=== PATIENT | male | born 1935 | race Caucasian/White ===

== ENCOUNTER → 2017-08-26 | Outpatient (CLI) | payer OTHER, MEDICARE | LOC: BHFA 13:15 | PROVIDERS: ATTEND Internal Medicine Cardiovascular Disease | DX: I50.9 Heart failure, unspecified (principal) ==

== ENCOUNTER → 2018-03-09 | Outpatient (CLI) | payer OTHER, MEDICARE | LOC: BHFA 13:15 | PROVIDERS: ATTEND Internal Medicine Cardiovascular Disease | DX: I48.91 Unspecified atrial fibrillation (principal) ==

== ENCOUNTER 2018-03-19 10:35 | Inpatient (IN) | payer OTHER, MEDICARE ==
--- NOTE | 2018-03-19 10:50 | CPEKG ---
Heart Rate: 75 RR Interval: 800 P-R Interval: 132 QRSD Interval: 188 QT Interval: 504 QTC Interval: 563 QRS Means: 18 T Wave Means: 186 EKG Severity - ABNORMAL ECG - EKG Impression: ATRIAL-VENTRICULAR DUAL-PACED COMPLEXES EKG Impression: IVCD, CONSIDER ATYPICAL LBBB Electronically Signed By: Eddie Hughes 19-Mar-2018 11:18:15
--- NOTE | 2018-03-19 10:54 | EDPHY ---
H & P Time Seen by Provider: 03/19/18 10:43 HPI/ROS: CHIEF COMPLAINT: Defibrillator went off twice HISTORY OF PRESENT ILLNESS: Patient has AICD from [facility]. Went off about a month ago from AFib. It went off yesterday once and then today twice at 10: 00 a.m.. He feels like he got punched in the chest. Currently has a little bit fatigued but has no other symptoms. He did not have syncope. REVIEW OF SYSTEMS: Eye: no change in vision ENT: no sore throat Cardiac: no chest pain or syncope Pulmonary: no cough or SOB Abdomen: no vomiting, diarrhea, abdominal pain Musculoskeletal: no back pain Skin: no rash Neuro: no headache Constitutional: Mild fatigue, no fever or chills. : no urinary symptoms A comprehensive 10 point review of systems is otherwise negative aside from elements mentioned in the history of present illness. PAST MEDICAL HISTORY: Includes AICD, atrial fibrillation on Eliquis, skin cancer surgery in his right upper lip. Prostate surgery, cholecystectomy, lumbar spine surgery, CHF Social history: Here with his General Appearance: Alert and conversant, cooperative. Eyes: No scleral icterus. ENT, Mouth: Normal mucous membranes. Respiratory: Normal respiratory effort, breath sounds equal, lungs are clear to auscultation. Cardiovascular: Regular rate and rhythm. Gastrointestinal: Abdomen is soft and non tender. Neurological: Alert, face symmetric, normal motor and sensory in extremities. Skin: Band-Aid over his upper lip where he had recent skin cancer surgery. Musculoskeletal: No peripheral edema. Psychiatric: Not agitated. Emergency Department course/MDM: [facility] is called to come evaluate the patient and interrogate his device. Pacer interrogation shows he has been given 28 rounds of ATP and 3 shocks in the last 24 hr for rapid atrial fibrillation. 1249: Discussed with Preston at this time; recommends admission for amiodarone. Discussed with the patient at this time he wants to discuss with cardiology/Dr. Johnsotn before starting this medication. Plan for observation admission with monitoring, cardiology consultation. Smoking Status: Never smoked Constitutional: Initial Vital Signs Temperature (C) 36.7 C 03/19/18 10:40 Heart Rate 76 03/19/18 10:40 Respiratory Rate 16 03/19/18 10:40 Blood Pressure 106/79 03/19/18 10:40 O2 Sat (%) 98 03/19/18 10:40 O2 Delivery Mode Room Air Allergies/Adverse Reactions: No Known Allergies Allergy (Verified 02/06/16 09:27) Home Medications: Medication Instructions Recorded Coreg 03/19/18 Eliquis 03/19/18 Gabapentin 03/19/18 Lasix 03/19/18 Levothyroxine 03/19/18 Pulmicort 03/19/18 Medical Decision Making - Diagnostics EKG Interpretation: 12-lead EKG interpreted by me; official reading is in trace master. My interpretation is av dual paced at rate of 75. Differential Diagnosis: Differential for pacemaker shock considered including but not limited to device malfunction, atrial fibrillation, ventricular tachycardia, ventricular fibrillation. Consult/Admit Bed Type: [facility] - Data Points Laboratory Results: Laboratory Results 03/19/18 10:55 03/19/18 10:55 03/19/18 03/19/18 03/19/18 11:03 10:55 10:55 WBC 4.69 10^3/uL 10^3/uL (3.80-9.50) RBC 4.06 10^6/uL L 10^6/uL (4.40-6.38) Hgb 13.6 g/dL L g/dL (13.7-17.5) Hct 40.2 % % (40.0-51.0) MCV 99.0 fL fL (81.5-99.8) MCH 33.5 pg pg (27.9-34.1) MCHC 33.8 g/dL g/dL (32.4-36.7) RDW 14.0 % % (11.5-15.2) Plt Count 141 10^3/uL L 10^3/uL (150-400) MPV 10.6 fL fL (8.7-11.7) Neut % (Auto) 52.3 % % (39.3-74.2) Lymph % (Auto) 32.2 % % (15.0-45.0) Mineral % (Auto) 13.6 % H % (4.5-13.0) Eos % (Auto) 0.9 % % (0.6-7.6) Baso % (Auto) 0.6 % % (0.3-1.7) Nucleat RBC Rel Count 0.0 % % (0.0-0.2) Absolute Neuts (auto) 2.45 10^3/uL 10^3/uL (1.70-6.50) Absolute Lymphs (auto) 1.51 10^3/uL 10^3/uL (1.00-3.00) Absolute Monos (auto) 0.64 10^3/uL 10^3/uL (0.30-0.80) Absolute Eos (auto) 0.04 10^3/uL 10^3/uL (0.03-0.40) Absolute Basos (auto) 0.03 10^3/uL 10^3/uL (0.02-0.10) Absolute Nucleated RBC 0.00 10^3/uL 10^3/uL (0-0.01) Immature Gran % 0.4 % % (0.0-1.1) Immature Gran # 0.02 10^3/uL 10^3/uL (0.00-0.10) Sodium 139 mEq/L mEq/L (135-145) Potassium 4.0 mEq/L mEq/L (3.3-5.0) Chloride 104 mEq/L mEq/L (97-110) Carbon Dioxide 24 mEq/l mEq/l (22-31) Anion Gap 11 mEq/L mEq/L (8-16) BUN 19 mg/dL mg/dL (7-23) Creatinine 1.2 mg/dL mg/dL (0.7-1.3) Estimated GFR 58 Glucose 98 mg/dL mg/dL (70-100) Calcium 9.6 mg/dL mg/dL (8.5-10.4) POC Troponin I 0.04 ng/mL ng/mL (0.00-0.08) Point of Care Test Results: Chemistry 03/19/18 11:03 POC Troponin I 0.04 ng/mL ng/mL (0.00-0.08) Departure - Departure Disposition: [facility] Inpatient Acute Clinical Impression: Defibrillator discharge Atrial fibrillation Qualifiers: Atrial fibrillation type: paroxysmal Qualified Code(s): I48.0 - Paroxysmal atrial fibrillation Condition: Good
[2018-03-19] MEDS ORDERED: AMIODARONE HCL 200 ML IV ONE ×2 (12:57→15:12)
[2018-03-19] MEDS ORDERED: AMIODARONE HCL 100 ML IV ONE ×2 (12:57→15:12)
[2018-03-19 13:10] LABS: PLATELET COUNT 141 10^3/uL (150-400)
[2018-03-19] MEDS ORDERED: ACETAMINOPHEN 325 MG TAB PO PRN (13:23)
[2018-03-19] MEDS ORDERED: ONDANSETRON 4 MG/2 ML VIAL IVP PRN (13:23)
--- NOTE | 2018-03-19 16:59 | GCON ---
[f rep st] CONSULTATION CARDIOLOGY CONSULT. DATE OF CONSULTATION: 03/19/2018 REFERRING PHYSICIAN: MD Brennan PRIMARY CARDIOLOGISTS: Dr. Elías Manning and Dr. Uriel Shelton. CHIEF COMPLAINT: Defibrillator shock. HISTORY OF PRESENT ILLNESS: We were asked by Dr. Amin to visit with the patient. The patient is a very pleasant 82-year-old male, followed by my partners, Dr. Manning and Dr. Shelton. He has a history of paroxysmal atrial fibrillation and ventricular tachycardia. He has a nonischemic cardiomyopathy and has a [employer] biventricular dual-chamber ICD. Other history includes hypertension, [id number] evere mitral regurgitation, and chronic renal insufficiency. The patient was in his usual state of health yesterday. He received a single shock that felt like be ing kicked in the chest. Today, this happened twice more. He denies any warning such as lightheaded ness or palpitations. He did not lose consciousness or fall with the shocks. He presented to the ER. His device was interrogated and showed that he was inappropriately shocked f or atrial fibrillation 3 times and had 28 episodes of ATP as well. Currently, the patient feels back to normal. I have reviewed his clinic notes. He did have discrimination changes to his ICD back in January when he had also presented with inappropriate shocks for atrial fibrillation. He most recently see saw Dr. Shelton on March 09. There was a discussion about whether amiodarone should be initiated or whether the patient would move forward with either atrial fibrillation or VT ablation . It was decided to continue current management at that time. REVIEW OF SYSTEMS: The patient had Mohs surgery 2 days ago. He has had a chronic cough for several months and sees Dr. Sanchez. Otherwise, a full 10-point review of systems performed is negative except that which is outlined above. ALLERGIES: No known drug allergies. PAST MEDICAL HISTORY: 1. Nonischemic cardiomyopathy with an ejection fraction most recently 22%. 2. Paroxysmal atrial fibrillation. 3. Ventricular tachycardia with BiV ICD. This is a [employer] device. 4. Chronic renal insufficiency. 5. Hypertension. 6. Depression. 7. Mkxtfqeq-de-gfmbqz mitral regurgitation. 8. Peripheral neuropathy. 9. Hypothyroidism. OUTPATIENT MEDICATIONS: Neurontin, which is new; Coreg 3.125 mg twice daily; Eliquis 5 mg b.i.d.; La six 40 mg once daily; Synthroid; Ativan p.r.n.; potassium chloride 20 mEq b.i.d.; Protonix 20 mg; Pul micort inhaler; Spiriva; vitamin D3. SOCIAL HISTORY: The patient is . His is at the bedside. He does not smoke cigarettes. FAMILY HISTORY: Not applicable to the current case. PHYSICAL EXAM: VITAL SIGNS: Blood pressure 108/78, heart rate 81, oxygen saturation 90% on room air . He is afebrile. GENERAL: Well-appearing older male in no acute distress. HEENT: He does have a recent Mohs surgery over his right upper lip. He also has a rash on the right side of his face. No rmocephalic, atraumatic. CARDIOVASCULAR: JVP is less than 10. Regular rate and rhythm without murm ur, rub, or gallop. LUNGS: Clear to auscultation bilaterally without wheezes, rhonchi, or rales. A BDOMEN: Soft, nontender, nondistended, without bruits, masses, or hepatosplenomegaly. EXTREMITIES: Warm, well perfused without cyanosis, clubbing, or edema. NEURO: Alert and oriented x3 without yr ss focal neurologic deficits. Appropriate mood and affect. LABORATORY DATA: CBC is essentially normal except for platelets of 141; hemoglobin 13.6, which is luciano rderline low; minimally elevated monocytes. Basic metabolic panel shows creatinine of 1.2, normal po tassium, normal troponin. EKG reviewed by me shows AV sequential pacing. ASSESSMENT AND PLAN: An 82-year-old male presents with inappropriate shocks for atrial fibrillation. I had a long discussion with the patient and his about initiating amiodarone at this point, luciano th for his history of ventricular tachycardia, for which he has previously been shocked most recently as a month ago, as well as for his atrial fibrillation. He is in agreement to at least short-term a miodarone. No evidence of ischemia as a trigger for his arrhythmia. 1. Atrial fibrillation and ventricular tachycardia: We will start intravenous amiodarone protocol w ith plans to transition to oral amiodarone tomorrow. Check magnesium. Continue Coreg. I do not thi nk he would tolerate a higher dose of Coreg given his relatively low blood pressure and ongoing fatig ue. 2. Implantable cardioverter defibrillator shocks: As per #1. We will review strips. We will discu ss with Dr. Shelton. He may require further changes to device or possibly ablation. 3. Cardiomyopathy: Ejection fraction 22%. Currently appears euvolemic. Continue his outpatient ca rdiomyopathy medications. In review, he is not on an MARCELO inhibitor or angiotensin receptor leeann. This may be due to previous hypotension. He does follow up with Dr. Manning. 4. Chronic renal insufficiency: Creatinine is 1.2, which is his baseline. GFR is appropriate for 5 mg dose Eliquis. 5. Valvular heart disease: He does have at least moderate mitral regurgitation. Appears euvolemic today. Thank you for allowing us to participate in Percy's care. We will follow with you. /[id number]/MODL
[2018-03-19] MEDS: CARVEDILOL 3.125 MG TAB PO SCH (17:38)
[2018-03-19] MEDS: POTASSIUM CL 10 MEQ TAB PO SCH (17:38)
[2018-03-19] MEDS: OMEGA-3 FATTY ACIDS 1,000 MG CAP PO SCH (21:04)
[2018-03-19] MEDS: GABAPENTIN 300 MG CAP PO SCH (21:04)
[2018-03-19] MEDS: APIXABAN 5 MG TAB PO SCH (21:04)
[2018-03-19] MEDS ORDERED: AMIODARONE HCL 540 MG in D5W 300 ML IV ONE (22:00)
[2018-03-19] MEDS: ZOLPIDEM TARTRATE 5 MG TAB PO PRN (22:08)
[2018-03-20] MEDS: LEVOTHYROXINE 75 MCG TAB PO SCH (06:25)
[2018-03-20] MEDS: APIXABAN 5 MG TAB PO SCH ×2 (08:47→20:07)
[2018-03-20] MEDS: FUROSEMIDE 40 MG TAB PO SCH (08:47)
[2018-03-20] MEDS: OMEGA-3 FATTY ACIDS 1,000 MG CAP PO SCH ×2 (08:47→20:07)
[2018-03-20] MEDS: CARVEDILOL 3.125 MG TAB PO SCH ×2 (08:47→18:11)
[2018-03-20] MEDS: CHOLECALCIFEROL VIT D3 2,000 UNITS TAB/CAP PO SCH (08:47)
--- NOTE | 2018-03-20 09:52 | PDCARPN ---
Cardiology Progress Note Assessment/Plan: Assessment/plan: 82-year-old male with nonischemic cardiomyopathy, paroxysmal atrial fibrillation, history of VT with biventricular ICD. This is a [employer] device. He also has moderate to severe mitral regurgitation. He was admitted with 3 ICD shocks. Interrogation of his device revealed multiple episodes of ATP and 3 shocks, all for atrial fibrillation with rapid ventricular response. No evidence of coronary ischemia. 1. Arrhythmia: Inappropriate shocks for rapid atrial fibrillation. IV amiodarone was initiated yesterday and will finish 24 hr drip this afternoon. Transition to oral amiodarone today. The patient does not wish to continue long -term amiodarone if possible. Will discuss options with his primary dairy worker Dr. Shelton. Would keep at least 1 more night to make sure arrhythmias have stabilized. Continue Eliquis for his atrial fibrillation. 2. Cardiomyopathy: He appears euvolemic. Continue his outpatient Coreg. I do not think we can up titrate this due to relatively low blood pressure. Continue outpatient diuretics. He does see Dr. Manning for heart failure management. 3. Mitral regurgitation: Moderate to severe. Continue outpatient medical therapy. 03/20/18 09:48 03/20/18 09:52 Subjective: He reports feeling a little bit dyspneic when trying to sleep last night. No angina. He does not note palpitations. Reviewed/Discussed With: family Objective: Vital Signs (8 Hrs) Temp Pulse Resp BP Pulse Ox 03/20/18 08:47 92 03/20/18 08:00 36.6 C 76 15 94/58 L 97 03/20/18 04:00 36.4 C 77 16 95/70 L 96 Intake/Output (24 Hrs) 03/19/18 03/20/18 03/21/18 05:59 05:59 05:59 Intake Total 1190.3 Output Total 0 Balance 1190.3 Intake: Oral (ml) 940 IV Infused (ml) 250.3 Amiodarone HCl 100 ml @ 100 600 mls/hr IV ONCE ONE Rx #:[id number] Amiodarone HCl 540 mg In 150.3 D5w 300 ml @ 16.667 mls/ hr IV ONCE ONE Rx#: [id number] Output: Urine (ml) 0 Chest Tube Output (ml) 0 Estimated Blood Loss (ml) 0 Emesis (ml) 0 Gastrointestinal Tube 0 Output (ml) Wound Drainage (ml) 0 Other: Weight 74.344 kg Number of Voids 0 Number of Bowel Movements 0 Number of Emesis 0 Occurrences No acute distress JVP 12 cm of water. Regular rate and rhythm without murmur rub gallop Lungs clear without wheeze rhonchi or rales No lower extremity edema Result Diagrams: 03/19/18 10:55 03/20/18 03:10 Telemetry: Mostly AFib with ventricular rates in the 120s. Some AV sequential pacing. ICD10 Worksheet Patient Problems: Problems Problem Status Onset URI (upper respiratory infection) Acute Non-ischemic cardiomyopathy Acute CHF (congestive heart failure) Acute Chronic Disease Mgmt/Transitional Care Acute Atrial fibrillation Acute Defibrillator discharge Acute
[2018-03-20] MEDS: BUDESONIDE IH SCH ×3 (10:02→21:55)
[2018-03-20] MEDS: [UNRECOGNIZED DRUG - OTHER] IH SCH ×3 (10:02→21:55)
--- NOTE | 2018-03-20 11:08 | HOSPPROG ---
Hospitalist Progress Note Assessment/Plan: DIAGNOSES: * atrial fibrillation rapid ventricular response with history of same * multiple unsuccessful shocks from his AICD which was trying to treat his AFib * known severe systolic heart disease most recent ejection fraction July 2017 22% * PLANS: * Continue amiodarone at this time, will switch to p.o. Later today * Continue cardiac monitoring * Continue anticoagulation * I will order an echocardiogram to reassess his left ventricular function * Further decision making based on his progress, Dr. Johnston intends to review with Dr. Shelton who knows him well SUBJECTIVE: Patient feels well at this time. No further shocks from his AICD His been up walking very well in the hallway, no dyspnea no chest pain no palpitations OBJECTIVE Vitals reviewed: All stable without fever Corporate Risk Analyst, my review: Mostly paced but does have intermittent episodes of AFib in the 90s to 105,110 range particularly with activity Exam: alert oriented skin warm dry color ok resps not labored No jugular venous distension lungs clear BSs heart regular abd soft nondistended nontender, bowel sounds present limbs warm, no edema iv site ok Laboratory data: Basic metabolic panel stable today Objective: Vital Signs Temp Pulse Resp BP Pulse Ox 36.6 C 92 15 94/58 L 97 03/20/18 08:00 03/20/18 08:47 03/20/18 08:00 03/20/18 08:00 03/20/18 08:00 Laboratory Results 03/20/18 03:10 03/19/18 03/20/18 03/21/18 06:59 06:59 06:59 Intake Total 1190.3 Output Total 0 Balance 1190.3 ICD10 Worksheet Patient Problems: Problems Problem Status Onset Atrial fibrillation Acute Defibrillator discharge Acute CHF (congestive heart failure) Acute Chronic Disease Mgmt/Transitional Care Acute Non-ischemic cardiomyopathy Acute URI (upper respiratory infection) Acute
[2018-03-20] MEDS: POTASSIUM CL 10 MEQ TAB PO SCH ×2 (12:59→18:11)
[2018-03-20] MEDS: MULTIVITAMINS 1 EACH TAB PO SCH (12:59)
--- NOTE | 2018-03-20 13:28 | PDGENHP ---
History and Physical History and Physical: CC: Multiple shocks from his AICD HISTORY: This patient with long history of severe left ventricular heart disease and known atrial fibrillation and AICD placement comes in after 3 shocks from his AICD to on this admission data and 1 the day before. He has not had palpitations, chest pain, shortness of breath, leg swelling, worsening orthopnea or other acute cardiac symptoms besides the AICD shocks. His pacemaker was interrogated and he had 3 unsuccessful cardioversions attempted by the pacemaker for rapid atrial fibrillation. The pacer also tried some unsuccessful pacing attempts. The patient is now admitted to the rerecording mixer unit for further assessment and care. He has been otherwise feeling well. On review of his records the patient has had known heart disease for many years. He has nonischemic left ventricular heart disease. In late 2015 he was here with worsening heart failure and had ejection fraction measured by echo at 8%. At that time he had been referred to the [facility] for possible implantable assist device but it was felt that he was not a good candidate and that procedure was not offered. More recently the patient had an echocardiogram done in the Cardiology Clinic here July 2017 with any EF 22% . Has a long history of not being able to tolerate cardiac medicines due to severe symptomatic hypotension. Therefore despite his severe left ventricular disease he is taking only a small dose of Coreg with no ARB or MARCELO-inhibitor and has been similarly unable to tolerate hydralazine. He also has not been able to the tolerate more aggressive rate control medications. His echoes have also shown moderate to severe mitral regurgitation with some pulmonary hypertension and he has notable market biatrial enlargement. He has noncritical coronary disease seen on previous angiograms Notably despite all these cardiac abnormalities, at this time the patient is very asymptomatic at home prior to getting the recent shocks from his AICD. He is up and ambulating, walks greater than a mile a day which he does without stopping at a fairly rapid pace. He has no real symptoms of dyspnea, no edema, no lightheadedness, no palpitations, minimal occasional orthopnea. Their nose recent symptoms of angina. ROS: A comprehensive 10 system review revealed no other significant findings PAST MEDICAL HISTORY: Severe left ventricular systolic heart failure Moderate to severe mitral regurgitation Pacemaker for sick sinus syndrome with AICD due to his ventricular disease Severe biatrial enlargement Pulmonary hypertension Noncritical coronary artery disease with no history of interventions Hypertension Hyperlipidemia Prostate cancer Peripheral neuropathy Cholecystectomy Shoulder surgeries Back surgery and ankle surgery FAMILY MEDICAL HISTORY: Coronary heart disease and heart failure SOCIAL HISTORY: lives at home with his No tobacco no significant alcohol Retired MEDICATIONS: The patients list has been reconciled by our clinical pharmacist in the EMR. I have reviewed the list and ordered appropriate medicines. PHYSICAL EXAMINATION: Container Maker: Paced rhythm with intermittent atrial fibrillation Vital Signs: Currently stable vital signs with paced rhythm Good blood pressure respirations no fever Examination: General: alert, oriented, good mentation, relaxed Skin: warm, dry, good color, no rash HEENT: normal Neck: no mass or jvd Resps: relaxed Lungs: clear breath sounds Heart: regular, no murmur Abdomen: soft, nondistended, nontender, +BS, no mass Upper Extremities: normal Lower Extremities: no edema, warm No Bleeding or bruising Neurologic: normal speech/language, normal manager activities, no focal weakness IV site: looks normal LABORATORY DATA: BNP 4600, unremarkable troponin and metabolic panel Unremarkable CBC with mild chronic anemia RADIOLOGY STUDIES: None so far 12 LEAD EKG: My reading of the ER tracing shows 2 lead pacing with good function of the pacemaker typical conduction pattern for pacer ASSESSMENT: * acute increase in AFib burden in a patient with a history of paroxysmal AFib * 3 unsuccessful attempts by his AICD at cardioversion of his AFib * absence of any congestive heart failure decompensation at this time * absence of symptoms signs or test results indicating any ischemia * known severe left ventricular heart disease, lowest recorded ejection fraction at 5-10% by echo but most recently at 22% this past July * moderate to severe mitral regurgitation, biatrial enlargement, and pulmonary hypertension all stable * other acute medical illnesses as listed above in the past medical history are stable at this time Notably this patient is doing quite remarkably well for all of his chronic heart issues. He really is only symptomatic in that he has been receiving shocks from his AICD. It would be great trying keep him out of atrial fibrillation so this does not happen however given his multiple cardiac abnormalities this is not likely a obtainable without ongoing antiarrhythmic medication. The patient himself states he prefers to avoid terminal make up operator anti arrhythmic medicines. I do not know if we could reprogrammed his pacer to avoid trying to shock is rapid AFib, however this would leave him with unprotected rapid AFib which appears to be a increased burden for him just recently based on the behavior of his pacemaker. I wonder if he might possibly be a candidate for a an AV node ablation. Given the history of his poor LV function and his last echocardiogram more than half year ago it may be useful to get an echocardiogram to see if there is any change there. At the moment does not appear that there is much evidence for new ischemic disease though that could always occur. PLANS: * Admit to hospital in patient with cardiac monitoring * Cardiology consult Dr. Nasima Johnston will review with her after she sees the patient * Amiodarone has been started and will continue on IV load with that change to oral * Continue anticoagulation for now with Eliquis * Consider further treatment options based on cardiology recommendations and the patient's response to amiodarone I have reviewed the patient's case in detail with Dr. Eddie Hughes I have reviewed the patient's past medical records as part of this assessment, including multiple hospital admission records including physician notes laboratory data echocardiograms and EKGs
[2018-03-20] MEDS: AMIODARONE HCL 200 MG TAB PO SCH ×2 (13:53→20:07)
--- NOTE | 2018-03-20 14:15 | ASMTCMCOM ---
CM Note CM Note Notes: 03/20/2018 Case Management Note Met w/pt to discuss d/c needs. Pt admitted for treatment of afib. 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 Pt lives in his own home with his independently. He maintains his house without any help. He is able to drive and reports no difficulties with obtaining groceries. He has family nearby in [place] if assistance is needed. His Precious can be reached at [phone]. There are no PT or OT evals ordered at this time. There are no identified case management needs. Case Management d/c poc: independent with follow up as directed. Case Management available if needs change. Date Signed: 03/20/2018 02:14 PM Electronically Signed By:Sophia Wilson RN
--- NOTE | 2018-03-20 18:11 | PDMN ---
Medical Necessity Medical necessity: Pt meets INPT criteria per MD as of 03/19/18 and [facility] M-505 Atrial Fibrillation (est. LOS >2 MN for eval/mgmt of acute increase in Afib burden, 3 unsuccessful attempts by his AICD at cardioversion, known serven L ventricular heart disease, MR, pulmonary htn).
[2018-03-20] MEDS: GABAPENTIN 300 MG CAP PO SCH (20:07)
[2018-03-20] MEDS: ZOLPIDEM TARTRATE 5 MG TAB PO PRN (22:13)
[2018-03-21] MEDS: LEVOTHYROXINE 75 MCG TAB PO SCH (05:51)
[2018-03-21] MEDS: AMIODARONE HCL 200 MG TAB PO SCH ×2 (08:47→20:26)
[2018-03-21] MEDS: CARVEDILOL 3.125 MG TAB PO SCH ×2 (08:47→17:47)
[2018-03-21] MEDS: FUROSEMIDE 40 MG TAB PO SCH (08:47)
[2018-03-21] MEDS: OMEGA-3 FATTY ACIDS 1,000 MG CAP PO SCH ×2 (08:48→20:25)
[2018-03-21] MEDS: APIXABAN 5 MG TAB PO SCH ×2 (08:48→20:26)
--- NOTE | 2018-03-21 09:14 | ECHO ---
[email or web address] [address] [address] Main: [phone] Fax: Transthoracic Echocardiogram Name: LINDA BOWERS MR#: [id number] Study Date: 03/20/2018 Study Time: 03:00 PM Date of : 1935 Age: 82 year(s) Height: 177.8 cm (70 in.) Weight: 73.94 kg (163 lb.) BSA: 1.91 m2 Gender: Male Examination: Echo Indication: uncontrolled a fib, known severe systolic heart disease Image Quality: Adequate Contrast: Requested by: Ruben Amin BP: 92 mmHg/71 mmHg Heart Rate: Rhythm: Indication: uncontrolled a fib, known severe systolic heart disease Procedure Staff Roller Checker: Amisha Briscoe [facility] Reading Physician: Farhat Ceja MD Requesting Provider: Conclusions: Normal size left ventricle. No LV hypertrophy. Severely reduced systolic LV function. The ejection fraction is estimated to be 10-15 %. Global severe hypokinesis. There is a pacemaker lead noted in the right ventricle. The left atrium is severely dilated. The right atrium is normal in size. The mitral valve is normal in appearance and function. Severe mitral valve regurgitation is present. No mitral stenosis is present. Moderate aortic valve regurgitation is present. No aortic valve stenosis is present. The tricuspid valve is normal in appearance and function. Mild to moderate tricuspid valve regurgitation. The pulmonary artery pressure is mild to moderately increased. Right ventricular systolic pressure measures 48mmHg. No significant change Measurements: Chambers Valvular Assessment AV/MV Valvular Assessment TV/PV Normal Normal Normal Name Value Range Name Value Range Name Value Range Ao Alena (2D): 3.4 cm (1.4 cm-2.6 AV Vmax: 1.20 m/s (1 m/s-1.7 TR Vmax: 3.26 mm/s ( - ) cm) m/s) TR PGmax: 43 mmHg ( - ) IVSd (2D): 0.9 cm (0.6 cm-1.1 AV maxP mmHg ( - ) syst. PAP: 48 mmHg ( - ) cm) AV meanP mmHg ( - ) PV Vmax: 0.58 m/s (0.6 m/s-0.9 LVDd (2D): 7.5 cm (4.2 cm-5.9 JERICHO (VTI): 1.6 cm ( - ) m/s) cm) AR (PHT): 577 ms ( - ) PV PGmax: 1 mmHg ( - ) Patient: LINDA BOWERS Study Date: 03/20/2018 Page 1 of 3 03:00 PM LVDs (2D): 6.9 cm (2.1 cm-4 MV E Vmax: 0.73 m/s ( - ) cm) MV meanP mmHg ( - ) LVPWd (2D): 0.8 cm (0.6 cm-1 MV PHT: 0.059 s ( - ) cm) MVA (Vmax): 1.6 m/s ( - ) LVOTd 2.2 cm 2.2 cm mm MVA (PHT): 3.7 s ( - ) LVEF (BP): 12 % (>=55 %) EF Range: 10-15 % RVDd(2D): 3.8 cm (1.9 cm-3.8 cmmm) Continued Measurements: Chambers Valvular Assessment AV/MV Valvular Assessment TV/PV Name Value Name Value Name Value LADs: 4.8 cm MV DecTime: 158 m/s CVP (est.): 5 mmHg LADs Lon.8 cm MV E/E' Lateral: 11.50 LA Area: 25.9 cm2 MV VTI: 21.80 cm LA Volume: 117 ml MR ERO: 0.940 cm2 LA Volume Index: 61.3 ml/m2 MR PISA radius: 12 mm RA Area: 28.3 cm2 MR Reg. Volume: 100 ml AR Vmax: 3.69 cm/s Additional Vessels Name Value Ao Ascendin.1 cm Inferior Vena Cava: 1.6 cm Findings: Left Ventricle: Normal size left ventricle. No LV hypertrophy. Severely reduced systolic LV function. The ejection fraction is estimated to be 10-15 %. Unable to assess diastolic dysfunction. Global severe hypokinesis. Right Ventricle: Normal size right ventricle. Normal RV function. There is a pacemaker lead noted in the right ventricle. Left Atrium: The left atrium is severely dilated. Right Atrium: The right atrium is normal in size. Mitral Valve: The mitral valve is normal in appearance and function. Severe mitral valve regurgitation is present. No mitral stenosis is present. Aortic Valve: The aortic valve is tri-leaflet. Aortic sclerosis is present. Moderate aortic valve regurgitation is present. No aortic valve stenosis is present. Tricuspid Valve: The tricuspid valve is normal in appearance and function. Mild to moderate tricuspid valve regurgitation. The pulmonary artery pressure is mild to moderately increased. Right ventricular systolic pressure measures 48mmHg. Pulmonic Valve: The pulmonic valve is normal in appearance and function. There is no pulmonic regurgitation seen. Aorta: The aorta is normal. Normal size aortic root measuring 3.4 cm. Normal size ascending aorta measuring 3.1 cm. IVC: The IVC is normal sized. Pericardium: No pericardial effusion. No pleural effusion. Patient: LINDA BOWERS Study Date: 03/20/2018 Page 2 of 3 03:00 PM (No Signature Object) Patient: LINDA BOWERS Study Date: 03/20/2018 Page 3 of 3 03:00 PM [id number]
[2018-03-21] MEDS: BUDESONIDE IH SCH ×2 (09:53→20:59)
[2018-03-21] MEDS: [UNRECOGNIZED DRUG - OTHER] IH SCH ×2 (09:53→20:59)
--- NOTE | 2018-03-21 10:41 | PDCARPN ---
Cardiology Progress Note Chief Complaint: AF RVR/inappropriate ICD shocks Assessment/Plan: Assessment: Plan: Subjective: 82-year-old male with nonischemic cardiomyopathy, paroxysmal atrial fibrillation , history of VT with biventricular ICD. This is a [employer] device. He also has moderate to severe mitral regurgitation. He was admitted 03/19 with 3 ICD shocks. Interrogation of his device revealed multiple episodes of ATP and 3 shocks, all for atrial fibrillation with rapid ventricular response. No evidence of coronary ischemia. # Arrhythmia: Inappropriate shocks for rapid atrial fibrillation. - Has completed IV amiodarone . - Transitioned to oral amiodarone yesterday. - The patient does not wish to continue long-term amiodarone if possible. - Have reviewed with Dr. Shelton who recommends AVN ablation. - R/B/A reviewed and patient agreeable. - Continue Eliquis for his atrial fibrillation. #. VT: seen on previous outpatient checks - none seen on Telemetry overnight. - Continue Warfarin for now. #. Cardiomyopathy: He appears euvolemic. - Continue his outpatient Coreg. #. Mitral regurgitation: Moderate to severe. - Echo from yesterday shows severe MR which may be a function of lower EF. - Continue outpatient medical therapy. - Has previously declined surgical evaluation. Reviewed/Discussed With: family (), hospitalist (Dr. Iverson), other (Dr. Shelton) Time Spent with Patient: greater than 35 minutes Time Spent with Patient: Greater than 35 minutes spent on this patients care, greater than 50% of time spent counseling, educating, and coordinating care regarding the above mentioned plan. Objective: Vital Signs (8 Hrs) Temp Pulse Resp BP Pulse Ox 03/21/18 07:26 98.3 F 88 12 99/74 L 95 03/21/18 06:09 98.1 F 85 16 95/68 L 91 L Intake/Output (24 Hrs) 03/20/18 03/21/18 03/22/18 05:59 05:59 05:59 Intake Total 1190.3 425 150 Output Total 0 Balance 1190.3 425 150 Intake: Oral (ml) 940 425 150 IV Infused (ml) 250.3 0 Amiodarone HCl 100 ml @ 100 600 mls/hr IV ONCE ONE Rx #:[id number] Amiodarone HCl 540 mg In 150.3 0 D5w 300 ml @ 16.667 mls/ hr IV ONCE ONE Rx#: [id number] Output: Urine (ml) 0 Chest Tube Output (ml) 0 Estimated Blood Loss (ml) 0 Emesis (ml) 0 Gastrointestinal Tube 0 Output (ml) Wound Drainage (ml) 0 Other: Weight 74.344 kg 74.6 kg Intake Quantity Yes Sufficient Number of Voids 0 Number of Bowel Movements 0 Number of Emesis 0 Occurrences Result Diagrams: 03/19/18 10:55 03/20/18 03:10 Telemetry: AF and Paced rhythms Echocardiogram: 03/20: EF 10-15, global severe HK, severe MR, mod AR, RVSP 48 - Physical Exam Constitutional: no apparent distress Eyes: anicteric sclera Ears, Nose, Mouth, Throat: moist mucous membranes Neurologic: AAOx3 Psychiatric: cooperative, interactive ICD10 Worksheet Patient Problems: Problems Problem Status Onset Atrial fibrillation Acute Defibrillator discharge Acute CHF (congestive heart failure) Acute Chronic Disease Mgmt/Transitional Care Acute Non-ischemic cardiomyopathy Acute URI (upper respiratory infection) Acute
--- NOTE | 2018-03-21 11:01 | HOSPPROG ---
Hospitalist Progress Note Assessment/Plan: 82M with paroxysmal atrial fib and severe cardiomyopathy presents after three AICD shocks for a-fib # atrial fib, paroxysmal s/p inappropriate AICD shocks - s/p amiodarone load - plan for AV node ablation tomorrow - cont clara horowitz # NICM, EF 10-15% - euvolemic - cont coreg - not tolerant of MARCELO-i gven low BPs - cont lasix - bi-V AICD # severe MR # VT - per cards, seen on outpatient checks Subjective: feels ok today; wants to shower Objective: Vital Signs Temp Pulse Resp BP Pulse Ox 36.8 C 88 12 99/74 L 95 03/21/18 07:26 03/21/18 07:26 03/21/18 07:26 03/21/18 07:26 03/21/18 07:26 Laboratory Results 03/20/18 03:10 03/20/18 03/21/18 03/22/18 05:59 05:59 05:59 Intake Total 1190.3 425 150 Output Total 0 Balance 1190.3 425 150 chart reviewed echo reviewed - Physical Exam Constitutional: no apparent distress, appears nourished Cardiovascular: regular rate and rhythym, no murmur, rub, or gallop Respiratory: no respiratory distress, no rales or rhonchi, clear to auscultation Gastrointestinal: normoactive bowel sounds, soft, non-tender abdomen, no palpable masses ICD10 Worksheet Patient Problems: Problems Problem Status Onset URI (upper respiratory infection) Acute Non-ischemic cardiomyopathy Acute CHF (congestive heart failure) Acute Chronic Disease Mgmt/Transitional Care Acute Atrial fibrillation Acute Defibrillator discharge Acute
[2018-03-21] MEDS: MULTIVITAMINS 1 EACH TAB PO SCH (12:41)
[2018-03-21] MEDS: POTASSIUM CL 10 MEQ TAB PO SCH ×2 (12:41→17:47)
[2018-03-21] MEDS: CHOLECALCIFEROL VIT D3 2,000 UNITS TAB/CAP PO SCH ×2 (12:41→13:12)
[2018-03-21] MEDS: GABAPENTIN 300 MG CAP PO SCH (20:26)
[2018-03-21] MEDS: ZOLPIDEM TARTRATE 5 MG TAB PO PRN (22:05)
[2018-03-22 05:05] LABS: INR 1.8 (0.83-1.16)
[2018-03-22 05:53] LABS: PLATELET COUNT 122 10^3/uL (150-400)
[2018-03-22] MEDS: LEVOTHYROXINE 75 MCG TAB PO SCH (06:03)
--- NOTE | 2018-03-22 08:42 | HOSPPROG ---
Hospitalist Progress Note Assessment/Plan: 82M with paroxysmal atrial fib and severe cardiomyopathy presents after three AICD shocks for a-fib. Plan for AV node ablation today. # recent skin cancer resection on upper lip - needs sutures removed tomorrow # atrial fib, paroxysmal s/p inappropriate AICD shocks - s/p amiodarone load - plan for AV node ablation today - cont coreg, eliquis # NICM, EF 10-15% - euvolemic - cont coreg - not tolerant of MARCELO-i gven low BPs - cont lasix - bi-V AICD # severe MR # VT - per cards, seen on outpatient checks Subjective: slept well overnight; requesting to have sutures removed Objective: Vital Signs Temp Pulse Resp BP Pulse Ox 36.6 C 83 12 94/68 L 94 03/22/18 04:27 03/22/18 04:27 03/22/18 04:27 03/22/18 04:27 03/22/18 04:27 Laboratory Results 03/22/18 03:15 03/22/18 03:15 03/21/18 03/22/18 03/23/18 05:59 05:59 05:59 Intake Total 425 1350 Balance 425 1350 PT 21.0 SEC (12.0-15.0) H 03/22/18 03:15 INR 1.80 (0.83-1.16) H 03/22/18 03:15 tele personally reviewed - Physical Exam Constitutional: no apparent distress, appears nourished Cardiovascular: regular rate and rhythym, systolic murmur, No irregularly irregular, No diastolic murmur Respiratory: no respiratory distress, no rales or rhonchi, clear to auscultation Gastrointestinal: soft, non-tender abdomen, no palpable masses, No guarding, No rebound, No distension ICD10 Worksheet Patient Problems: Problems Problem Status Onset URI (upper respiratory infection) Acute Non-ischemic cardiomyopathy Acute CHF (congestive heart failure) Acute Chronic Disease Mgmt/Transitional Care Acute Atrial fibrillation Acute Defibrillator discharge Acute
--- NOTE | 2018-03-22 08:44 | CPEKG ---
Heart Rate: 80 RR Interval: 750 P-R Interval: 176 QRSD Interval: 178 QT Interval: 496 QTC Interval: 573 QRS [place]: 40 T Wave [place]: 206 EKG Severity - ABNORMAL ECG - EKG Impression: A-V DUAL-PACED RHYTHM WITH SOME INHIBITION Electronically Signed By: Garcia Chan 22-Mar-2018 09:23:13
--- NOTE | 2018-03-22 09:08 | PDCARPN ---
Cardiology Progress Note Chief Complaint: Atrial fibrillation with rapid ventricular response, inappropriate ICD discharges Assessment/Plan: Assessment: Nonischemic cardiomyopathy Atrial fibrillation with rapid ventricular response Inappropriate ICD shocks despite ICD reprogramming Ventricular tachycardia Plan: Patient has had inappropriate ICD discharges for atrial fibrillation with rapid ventricular response this admission and in the past. Previously I have discussed AV node ablation as an option for treatment. This was discussed again with the patient today. As an alternative we discussed amiodarone which the patient is currently taking but does not want to take long-term because of potential risk of side effects. We also discussed dofetilide as an alternative , his chances of success in controlling atrial fibrillation ex cetera. He wants to move forward with AV node ablation. This has been scheduled for this afternoon. Risks and benefits of EPS/ablation including but not limited to risks of , myocardial infarction, stroke, tamponade which may require emergent cardiac surgery, AV block requiring implantation of a permanent pacemaker, vascular access complications which may require surgery, deep venous thrombosis, pulmonary embolism, infection, risks associated with sedation/anesthesia were discussed with the patient. Risks and benefits specific to AV junction ablation including a risk of being pacemaker dependent i.e. risk of sudden or syncope in case of pacemaker failure. It was also emphasized that the pacemaker lower rate will be programmed at 80 ppm for the 1st 3 months to reduce the risk of sudden cardiac due to torsades de pointes. I also emphasized to the patient that this procedure does not prevent atrial fibrillation, is designed for rate control only, and therefore anticoagulation must be continued postprocedure. 03/22/18 09:07 Reviewed/Discussed With: hospitalist, multidisciplinary team, other (Dr. Nasima Johnston, Ludivina Bro) Time Spent with Patient: greater than 25 minutes Time Spent with Patient: Greater than 25 minutes spent on this patients care, greater than 50% of time spent counseling, educating, and coordinating care regarding the above mentioned plan. Objective: Vital Signs (8 Hrs) Temp Pulse Resp BP Pulse Ox 03/22/18 08:00 36.6 C 78 16 99/73 L 94 03/22/18 04:27 36.6 C 83 12 94/68 L 94 Intake/Output (24 Hrs) 03/20/18 03/21/18 03/22/18 11:59 11:59 11:59 Intake Total 1190.3 575 1200 Output Total 0 Balance 1190.3 575 1200 Intake: Oral (ml) 161 879 6795 IV Intake (ml) 0 IV Infused (ml) 250.3 0 Amiodarone HCl 100 ml @ 100 600 mls/hr IV ONCE ONE Rx #:[id number] Amiodarone HCl 540 mg In 150.3 0 D5w 300 ml @ 16.667 mls/ hr IV ONCE ONE Rx#: [id number] Output: Urine (ml) 0 Chest Tube Output (ml) 0 Estimated Blood Loss (ml) 0 Emesis (ml) 0 Gastrointestinal Tube 0 Output (ml) Wound Drainage (ml) 0 Other: Weight 74.344 kg 74.6 kg 73.89 kg Intake Quantity Yes Sufficient Number of Voids 0 Number of Bowel Movements 0 Number of Emesis 0 Occurrences Result Diagrams: 03/22/18 03:15 03/22/18 03:15 ICD10 Worksheet Patient Problems: Problems Problem Status Onset URI (upper respiratory infection) Acute Non-ischemic cardiomyopathy Acute CHF (congestive heart failure) Acute Chronic Disease Mgmt/Transitional Care Acute Atrial fibrillation Acute Defibrillator discharge Acute
[2018-03-22] MEDS: [UNRECOGNIZED DRUG - OTHER] IH SCH ×2 (09:39→20:37)
[2018-03-22] MEDS: BUDESONIDE IH SCH ×2 (09:39→20:37)
[2018-03-22] MEDS: AMIODARONE HCL 200 MG TAB PO SCH ×2 (09:48→20:35)
[2018-03-22] MEDS: APIXABAN 5 MG TAB PO SCH ×2 (09:48→20:34)
[2018-03-22] MEDS: CARVEDILOL 3.125 MG TAB PO SCH ×2 (09:48→17:41)
[2018-03-22] MEDS: OMEGA-3 FATTY ACIDS 1,000 MG CAP PO SCH ×2 (09:49→20:34)
[2018-03-22] MEDS: FUROSEMIDE 40 MG TAB PO SCH (09:49)
[2018-03-22] MEDS ORDERED: LIDOCAINE 1% 300 MG/30 ML SDV ONE (13:54)
[2018-03-22] MEDS ORDERED: BUPIVACAINE 0.75% 10 ML SDV ONE (13:54)
[2018-03-22] MEDS ORDERED: HEPARIN 10,000 UNIT/10 ML MDV (1,000 UNIT/ML) ONE (13:57)
--- NOTE | 2018-03-22 14:06 | PDANEPAE ---
ANE History of Present Illness av node ablation ANE Past Medical History - Cardiovascular History Hx Hypertension: Yes Hx Arrhythmias: Yes Hx Chest Pain: No Hx Coronary Artery / Peripheral Vascular Disease: No Hx CHF / Valvular Disease: Yes Hx Palpitations: No - Pulmonary History Hx COPD: No Hx Asthma/Reactive Airway Disease: No Hx Recent Upper Respiratory Infection: No Hx Oxygen in Use at Home: No Hx Sleep Apnea: No - Neurologic History Hx Cerebrovascular Accident: No Hx Seizures: No Hx Dementia: No - Endocrine History Hx Diabetes: No Hypothyroid: No Hyperthyroid: No - Renal History Hx Renal Disorders: No - Liver History Hx Hepatic Disorders: No - Chronic Pain History Chronic Pain: No ANE Review of Systems Review of Systems: - Exercise capacity Exercise capacity: <4 METS - Pacemaker 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 Pacemaker Last Checked: 02/2018 ANE Patient History - Allergies Allergies/Adverse Reactions: No Known Allergies Allergy (Verified 02/06/16 09:27) - Home Medications Home medications: home medication list seen and reviewed Home Medications: Apixaban [Eliquis] 5 mg PO BID 03/19/18 [Last Taken 03/19/18] Carvedilol [Coreg (*)] 3.125 mg PO BIDMEAL 03/19/18 [Last Taken 03/19/18] Cholecalciferol Vit D3 [Vitamin D3 2000 units tab (OTC)] 4,000 units PO DAILY@ 03/19/18 [Last Taken 03/18/18] Furosemide [Lasix 40 MG (*)] 40 mg PO DAILY 03/19/18 [Last Taken 03/19/18] Gabapentin [Neurontin 300 MG (*)] 300 mg PO HS 03/19/18 [Last Taken 03/12/18] Levothyroxine [Synthroid 75 mcg (*)] 37.5 mcg PO DAILY06 03/19/18 [Last Taken ] Multivitamins [Multivitamin (*)] 1 each PO DAILY@03/19/18 [Last Taken ] [place]-3 Fatty Acids [Fish Oil 1000 mg (*)] 1,000 mg PO BID 03/19/18 [Last Taken 03/18/18] Potassium Chloride [Klor-Con 10] 10 meq PO BID@,18 03/19/18 [Last Taken ] Budesonide 90 Mcg INH [Pulmicort 90 Mcg Flexhaler (*)] 2 puffs IH BID 03/22/18 [ Last Taken Unknown] - NPO status NPO Status: no food or drink >8 hours - Smoking Hx Smoking Status: Never smoked ANE Labs/Vital Signs - Labs Result Diagrams: 03/22/18 03:15 03/22/18 03:15 - Vital Signs Blood Pressure: 96/79 Heart Rate: 89 Respiratory Rate: 16 O2 Sat (%): 95 Height: 177.8 cm Weight: 73.89 kg ANE Physical Exam - Airway Mallampati Score: Class 2 Mouth exam: normal dental/mouth exam - Pulmonary Pulmonary: no respiratory distress - Cardiovascular Cardiovascular: regular rate and rhythym - ASA Status ASA Status: III ANE Anesthesia Plan Anesthesia Plan: MAC
[2018-03-22] MEDS ORDERED: PROPOFOL/EMULSION 500 MG/50 ML BOTTLE IV ONE (14:14)
[2018-03-22] MEDS ORDERED: PHENYLEPHRINE HCL 100 MCG/ML SYR ONE (14:51)
[2018-03-22] MEDS ORDERED: NALOXONE HCL 0.4 MG/ML INJ IVP PRN (15:22)
[2018-03-22] MEDS ORDERED: ALBUTEROL 3 ML DEYVIAL IH PRN (15:22)
[2018-03-22] MEDS ORDERED: fentaNYL 100 MCG/2 ML INJ IVP PRN (15:22)
--- NOTE | 2018-03-22 15:22 | POSTANESTH ---
Post Anesthetic Evaluation Cardiovascular Status: Normal, Stable Respiratory Status: Normal, Stable Level of Consciousness/Mental Status: Can Participate in Eval, Alert and Oriented, Other, See Comment (slightly disoriented) Pain Control: Adequate, Prn Tx Ordered Nausea/Vomiting Control: Adequate, Prn Tx Ordered Complications Possibly Related to Anesthesia: None Noted
--- NOTE | 2018-03-22 15:29 | EPPROC ---
Electrophysiology Procedure Note: CATHETER MEDIATED ABLATION OF THE AV JUNCTION Procedures performed: 98320 AV node ablation Fluoroscopy INDICATION: Atrial fibrillation, unable to rate control despite maximally tolerated medical therapy Nonischemic cardiomyopathy Inappropriate ICD discharge with AF with RVR Catheters & Anesthesia: The patient arrived in the Electrophysiology Laboratory in the fasting state. Sedation was administered by Dr. Michael Cook. The right groin and left groin area were prepped and draped in the usual sterile manner. Appropriate non- invasive blood pressure, pulse oximetry and end-tidal CO2 monitoring was established. All catheters were placed percutaneously using the modified Seldinger technique and advanced into position under fluoroscopic guidance . At baseline the patient was noted to be in atrial fibrillation followed by sinus rhythm. A #7 Kiswahili deflectable quadrapolar electrode catheter (2mm-5mm-2mm spacing) with 8 mm tip electrode was advanced to the right atrium. A total of 3 RF applications were delivered. RF#1 was applied in the area of the compact AV node. RF#2 was applied to the same area as RF#1. RF#3was applied to the right midseptal tricuspid annulus. There was complete AV block after RF 1 Cessation of pacing revealed that there was no escape rhythm while pacing at at a rate of 30 bpm. Bi V ICD implantation was done previously. The Bi V AICD was programmed to a lower rate of 80 ppm to reduce the risk of sudden associated with torsades de pointes. The lower rate will gradually be reduced to 60 ppm after 1 month . Fluoroscopically pacemaker lead positions were unchanged after procedure Pacemaker thresholds and impedances were unchanged after the procedure The catheters were removed. Subcutaneous stitch was used for hemostasis. The patient was transferred to the cardiovascular holding area in stable condition. There were no apparent complications. CONCLUSIONS: 1. Atrial fibrillation with rapid ventricular response. 2. Successful ablation of the AV junction producing complete AV block. 3. No escape rhythm while pacing at at a rate of 30 bpm. 4. No complications. Patient Problems: Problems Problem Status Onset URI (upper respiratory infection) Acute Non-ischemic cardiomyopathy Acute CHF (congestive heart failure) Acute Chronic Disease Mgmt/Transitional Care Acute Atrial fibrillation Acute Defibrillator discharge Acute
--- NOTE | 2018-03-22 16:43 | CPEKG ---
Heart Rate: 87 RR Interval: 690 P-R Interval: 154 QRSD Interval: 206 QT Interval: 460 QTC Interval: 554 P [place]: 0 QRS [place]: 139 T Wave [place]: -53 EKG Severity - ABNORMAL ECG - EKG Impression: A-V DUAL-PACED RHYTHM WITH SOME INHIBITION Electronically Signed By: Garcia Chan 23-Mar-2018 07:51:48
[2018-03-22] MEDS: MULTIVITAMINS 1 EACH TAB PO SCH (17:41)
[2018-03-22] MEDS: POTASSIUM CL 10 MEQ TAB PO SCH ×2 (17:41→18:07)
[2018-03-22] MEDS: CHOLECALCIFEROL VIT D3 2,000 UNITS TAB/CAP PO SCH (17:41)
[2018-03-22] MEDS: GABAPENTIN 300 MG CAP PO SCH (20:34)
[2018-03-22] MEDS: ZOLPIDEM TARTRATE 5 MG TAB PO PRN (21:34)
[2018-03-23] MEDS: LEVOTHYROXINE 75 MCG TAB PO SCH (05:43)
[2018-03-23 07:37] VITALS: BP 96/73
[2018-03-23] MEDS: OMEGA-3 FATTY ACIDS 1,000 MG CAP PO SCH (08:00)
[2018-03-23] MEDS: FUROSEMIDE 40 MG TAB PO SCH (08:00)
[2018-03-23] MEDS: APIXABAN 5 MG TAB PO SCH (08:01)
[2018-03-23] MEDS: CARVEDILOL 3.125 MG TAB PO SCH (08:01)
[2018-03-23] MEDS: AMIODARONE HCL 200 MG TAB PO SCH (08:01)
[2018-03-23] MEDS: [UNRECOGNIZED DRUG - OTHER] IH SCH (08:02)
[2018-03-23] MEDS: BUDESONIDE IH SCH (08:02)
--- NOTE | 2018-03-23 11:12 | PDCARPN ---
Cardiology Progress Note Chief Complaint: AF/ inappropriate shocks/ NSVT Assessment/Plan: Assessment: 82-year-old male with nonischemic cardiomyopathy, paroxysmal atrial fibrillation , history of VT with biventricular ICD. This is a [employer] device. He also has moderate to severe mitral regurgitation. He was admitted 03/19 with 3 ICD shocks. Interrogation of his device revealed multiple episodes of ATP and 3 shocks, all for atrial fibrillation with rapid ventricular response. No evidence of coronary ischemia. # Arrhythmia: Inappropriate shocks for rapid atrial fibrillation. - Has completed IV amiodarone and then transitioned to oral amiodarone. - The patient does not wish to continue long-term amiodarone if possible. - Have reviewed with Dr. Shelton who recommends AVN ablation. - R/B/A reviewed and patient agreeable. - Continue Eliquis for his atrial fibrillation. #. PAF: s/p AVN ablation POD #1. - Stop Amiodarone prior to discharge. - Continue Eliquis. #. VT: seen on previous outpatient checks - none seen on Telemetry overnight. #. Cardiomyopathy: He appears euvolemic. - EF now a little lower. - follow up with Dr. Manning in 2-3 weeks. - Continue his outpatient Coreg. #. Mitral regurgitation: Moderate to severe. - Echo from yesterday shows severe MR which may be a function of lower EF. - Continue outpatient medical therapy. - Has previously declined surgical evaluation. Plan: - OK to discharge from cardiac perspective. 03/23/18 11:15 Subjective: No groin pain, cp, dyspnea. Reviewed/Discussed With: hospitalist (Dr. Fitzgerald) Objective: Vital Signs (8 Hrs) Temp Pulse Resp BP Pulse Ox 03/23/18 07:37 99.2 F 85 16 96/73 L 94 03/23/18 04:00 98.0 F 93 16 90/69 L 93 Intake/Output (24 Hrs) 03/22/18 03/23/18 03/24/18 05:59 05:59 05:59 Intake Total 1350 700 Output Total 350 Balance 1350 350 Intake: Oral (ml) 1350 700 IV Intake (ml) 0 Output: Urine (ml) 350 Urinal 350 Other: Weight 73.89 kg 73.618 kg Result Diagrams: 03/22/18 03:15 03/22/18 03:15 Telemetry: A and V paced- personally interpreted - Physical Exam Constitutional: healthy appearing, no apparent distress Eyes: PERRL, anicteric sclera Ears, Nose, Mouth, Throat: moist mucous membranes Cardiovascular: regular rate and rhythm Skin: no rashes, warm, other (R groin site purse string suture removed) ICD10 Worksheet Patient Problems: Problems Problem Status Onset Atrial fibrillation Acute Defibrillator discharge Acute CHF (congestive heart failure) Acute Chronic Disease Mgmt/Transitional Care Acute Non-ischemic cardiomyopathy Acute URI (upper respiratory infection) Acute
[2018-03-23] MEDS: MULTIVITAMINS 1 EACH TAB PO SCH (11:39)
[2018-03-23] MEDS: POTASSIUM CL 10 MEQ TAB PO SCH (11:39)
[2018-03-23] MEDS: CHOLECALCIFEROL VIT D3 2,000 UNITS TAB/CAP PO SCH (11:40)
--- NOTE | 2018-03-23 15:56 | GDS ---
[f rep st] DISCHARGE SUMMARY DISCHARGE DIAGNOSES: 1. Paroxysmal atrial fibrillation with inappropriate automatic implantable cardioverter defibrillator shocks, status post atrioventricular node ablation. 2. 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 3. Nonischemic cardiomyopathy with an ejection fraction of 10-15%. 4. Severe mitral regurgitation. 5. History of ventricular tachycardia. CONSULTANTS: 1. Dr. Nasima Johnston, Cardiology. 2. Dr. Uriel Shelton, Electrophysiology. PROCEDURES: Av node ablation March 22, 2018, by Dr. Uriel Shelton. HISTORY OF PRESENT ILLNESS: For details, Please see the history and physical dated March 22, 2018. The patient is an 82- year-old male with a history of paroxysmal atrial fibrillation and nonischemic cardiomyopathy who presented to the emergency department after multiple inappropriate shocks from his AICD in the setting of rapid atrial fibrillation. He was admitted to the hospital for further management. HOSPITAL COURSE: The patient was admitted to cardiac telemetry unit. He was initially started on amiodarone in an attempt to achieve rhythm control. He ultimately underwent AV node ablation and amiodarone was discontinued at the time of discharge. He remains in sinus rhythm since his AV node ablation. He maintained euvolemia and was continued on his outpatient doses of Coreg and Lasix. Prior to discharge, he had sutures removed from a skin cancer resection on his upper lip. DISPOSITION: Patient is discharged home in stable condition. FOLLOWUP: 1. Dr. Elías No April 07 at 10:[address] Uriel Shelton, May 05 at 9:[address] Ata Sanchez, primary care. DISCHARGE MEDICATIONS: Please see [facility] for completed outpatient medication list. There are no new medications on discharge. He should continue all other outpatient medications as previously prescribed. /[id number]/MODL MTDD
== END 2018-03-23 12:04 | disposition home or self-care (01) | DRG 274 ==
LOC: F2W 14:09
PROVIDERS: ADMIT Internal Medicine; ATTEND Hospitalist
PROC: 02583ZZ Destruction of Conduction Mechanism, Percutaneous Approach (ICD-10-PCS; principal; 2018-03-22)
DX: I48.0 Paroxysmal atrial fibrillation (principal); Z79.01 Long term (current) use of anticoagulants; I42.8 Other cardiomyopathies; I50.810 Right heart failure, unspecified; I47.2 Ventricular tachycardia; Z95.810 Presence of automatic (implantable) cardiac defibrillator; I34.0 Nonrheumatic mitral (valve) insufficiency; I27.89 Other specified pulmonary heart diseases; Z85.828 Personal history of other malignant neoplasm of skin; I13.0 Hypertensive heart and chronic kidney disease with heart failure and stage 1 through stage 4 chronic kidney disease, or unspecified chronic kidney disease; N18.9 Chronic kidney disease, unspecified; E78.5 Hyperlipidemia, unspecified; G62.9 Polyneuropathy, unspecified; Z85.46 Personal history of malignant neoplasm of prostate; F32.9 Major depressive disorder, single episode, unspecified
CPT/HCPCS: 84484-PO; C1732; J0282; J1644; J2370; J2704